=== PATIENT | male | born 1975 | race Caucasian/White ===

== ENCOUNTER 2017-11-27 08:40 | Emergency (ER) | payer SELFPAY ==
[~2017-11-27] VITALS: Ht 177.8 cm; Wt 75.0 kg
[~2017-11-27 08:40] MED LIST: NAPROSYN500 MG PO
[2017-11-27] MEDS ORDERED: BACTRIM DS1 TAB PO (09:17)
[2017-11-27] MEDS ORDERED: CEPHALEXIN500 MG PO (09:17)
[2017-11-27 09:29] VITALS: BP 116/77
== END 2017-11-27 09:31 | disposition home or self-care (01) | DRG 603 ==
LOC: ED 08:40
DX: L03.115 Cellulitis of right lower limb (principal); M25.571 Pain in right ankle and joints of right foot; S90.511A Abrasion, right ankle, initial encounter; X58.XXXA Exposure to other specified factors, initial encounter; Y93.89 Activity, other specified; Y92.73 Farm field as the place of occurrence of the external cause

== ENCOUNTER 2017-11-29 08:39 | Emergency (ER) | payer SELFPAY ==
[~2017-11-29] VITALS: Ht 177.8 cm; Wt 90.0 kg
[~2017-11-29 08:39] MED LIST changes: +BACTRIM DS1 TAB PO; +CEPHALEXIN500 MG PO
[2017-11-29 09:20] VITALS: BP 115/76
[2017-11-29] MEDS ORDERED: HYDROCO/APAP1 TA9 PO (09:28)
== END 2017-11-29 09:20 | disposition home or self-care (01) | DRG 603 ==
LOC: ED 08:39
DX: L03.115 Cellulitis of right lower limb (principal); M25.471 Effusion, right ankle

== ENCOUNTER 2018-03-21 08:11 | Emergency (ER) | payer SELFPAY ==
[~2018-03-21] VITALS: Ht 177.8 cm; Wt 60.0 kg
[~2018-03-21 08:11] MED LIST changes: +HYDROCO/APAP1 TA9 PO
[2018-03-21 08:33] LABS: HEMATOCRIT 44.2 % (39.0-50.0); HEMOGLOBIN 14.9 g/dl (14.0-18.0); IMMATURE GRANULOCYTES 0.3 % (0.0-1.0); MEAN CELL VOLUME 90.8 fL CALC (80.0-100.0); MEAN CORPUSCULAR HGB 30.6 pG CALC (26.0-32.0); MEAN CORPUSCULAR HGB CONC 33.7 g/L CALC (32.0-36.0); NEUT# 7.65 thou/uL (1.82-7.42); RED BLOOD COUNT 4.87 mill/uL (4.70-6.10); RED CELL DISTRI WIDTH 13.2 % (11.5-15.5)
[2018-03-21 08:48] LABS: ALKALINE PHOSPHATASE 91 u/l (38-126); ANION GAP 9 (6-22 (CALC)); BILIRUBIN, TOTAL 0.5 mg/dL (0.0-1.4); BUN 10 mg/dL (9-20); BUN/CREATININE RATIO 16 (12-20 (CALC)); CARBON DIOXIDE 28 mmol/l (22-30); CHLORIDE 105 mmol/l (95-108); CREATININE 0.6 mg/dL (0.7-1.3); GFR > 60 ML/MIN (>=60 (CALC)); GFR FOR AFR.AMER. > 60 ML/MIN (>=60 (CALC)); LIPASE 76 u/l (23-300); POTASSIUM 3.6 mmol/l (3.5-5.1); SGOT/AST 18 u/l (17-59); SGPT/ALT 27 u/l (21-72); SODIUM 138 mmol/l (137-146)
[2018-03-21 08:49] LABS: ALBUMIN 4.4 g/dL (3.2-5.0); TOTAL PROTEIN 7.5 g/dL (6.3-8.2)
[2018-03-21] MEDS ORDERED: RANITIDINE150 M1 PO (09:12)
[2018-03-21 09:17] LABS: URINE BILIRUBIN - DIPSTICK NEGATIVE (NEGATIVE); URINE BLOOD DIPSTICK TRACE-LYSED (NEGATIVE); URINE COLOR YELLOW; URINE GLUCOSE - DIPSTICK NEGATIVE (NEGATIVE); URINE KETONE NEGATIVE (NEGATIVE); URINE LEUK ESTERASE NEGATIVE (NEGATIVE); URINE NITRITE - DIPSTICK NEGATIVE (Negative); URINE PROTEIN - DIPSTICK TRACE mg/dL (NEG-TRACE); URINE UROBILINOGEN - DIPSTICK 0.2 E.U./dL (0.2)
[2018-03-21 09:19] LABS: URINE CLARITY SL CLOUDY
[2018-03-21 09:25] VITALS: BP 106/62
== END 2018-03-21 09:25 | disposition home or self-care (01) | DRG 204 ==
LOC: ED 08:11
PROVIDERS: Family Medicine
DX: R06.02 Shortness of breath (principal); R10.13 Epigastric pain; R50.9 Fever, unspecified

== ENCOUNTER 2018-10-01 15:18 | Emergency (ER) | payer SELFPAY ==
[~2018-10-01] VITALS: Ht 177.8 cm; Wt 70.0 kg
[~2018-10-01 15:18] MED LIST changes: +RANITIDINE150 M1 PO
[2018-10-01 15:26] VITALS: BP 122/77
[2018-10-02] MEDS ORDERED: IBUPROFEN600 MG PO (18:18)
[2018-10-02] MEDS ORDERED: FLEXERIL PO (18:18)
[2018-10-02] MEDS ORDERED: PREDNISONE20 MG PO (18:18)
== END 2018-10-01 16:00 | disposition home or self-care (01) | DRG 563 ==
LOC: ED 15:18
DX: S39.012A Strain of muscle, fascia and tendon of lower back, initial encounter (principal); X50.0XXA Overexertion from strenuous movement or load, initial encounter; Y93.89 Activity, other specified; Y92.89 Other specified places as the place of occurrence of the external cause; Y99.0 Civilian activity done for income or pay

== ENCOUNTER 2018-10-02 17:08 | Emergency (ER) | payer SELFPAY ==
[~2018-10-02] VITALS: Ht 177.8 cm; Wt 70.9 kg
[2018-10-02] MEDS ORDERED: FLEXERIL PO (18:18)
[2018-10-02] MEDS ORDERED: PREDNISONE20 MG PO (18:18)
[2018-10-02] MEDS ORDERED: IBUPROFEN600 MG PO (18:18)
[2018-10-02 18:24] VITALS: BP 100/62
== END 2018-10-02 18:24 | disposition home or self-care (01) | DRG 563 ==
LOC: ED 17:08
DX: S39.012A Strain of muscle, fascia and tendon of lower back, initial encounter (principal); M54.5 Low back pain; W17.2XXA Fall into hole, initial encounter; Y93.89 Activity, other specified; Y92.89 Other specified places as the place of occurrence of the external cause; Y99.0 Civilian activity done for income or pay

== ENCOUNTER 2018-10-23 09:55 | Emergency (ER) | payer OTHER ==
[~2018-10-23] VITALS: Ht 180.3 cm; Wt 75.9 kg
[~2018-10-23 09:55] MED LIST changes: +FLEXERIL PO; +IBUPROFEN600 MG PO; +PREDNISONE20 MG PO
[2018-10-23] MEDS ORDERED: FLEXERIL PO (10:31)
[2018-10-23] MEDS ORDERED: NAPROSYN500 MG PO (10:31)
[2018-10-23 10:55] VITALS: BP 116/79
== END 2018-10-23 10:55 | disposition home or self-care (01) | DRG 552 ==
LOC: ED 09:55
DX: S33.5XXA Sprain of ligaments of lumbar spine, initial encounter (principal); X58.XXXA Exposure to other specified factors, initial encounter